=== PATIENT | female | born 1985 | race African-American/Black ===

== ENCOUNTER 2017-04-21 09:05 | Inpatient (IN) ==
[2017-04-22] MEDS ORDERED: TYLENOL PO PRN (00:21)
[2017-04-22] MEDS ORDERED: PEPCID IV PRN (00:21)
[2017-04-22] MEDS ORDERED: KEFZOL 1 GM/D5W 1 GM/50 ML IVPB IV PRN (00:21)
[2017-04-22] MEDS ORDERED: STADOL IV PRN ×2 (00:21)
[2017-04-22] MEDS ORDERED: PEPCID PO PRN (00:21)
[2017-04-22] MEDS ORDERED: BRETHINE SUBQ PRN (00:21)
[2017-04-22] MEDS ORDERED: AMBIEN PO PRN ×2 (00:21→13:28)
[2017-04-22] MEDS ORDERED: ZOFRAN IV PRN (00:21)
[2017-04-22] MEDS ORDERED: CYTOTEC PO ONE (00:21)
[2017-04-22] MEDS ORDERED: AMPICILLIN 2 GM/NS 2 GM/100 ML IVPB IV ONE (00:21)
[2017-04-22] MEDS ORDERED: PITOCIN 30 UNITS/LR 30 UNITS/500 ML IV.SOLN IV SCH (00:21)
[2017-04-22] MEDS: LR 1,000 ML IV ONE ×2 (01:21→09:16)
[2017-04-22 02:42] LABS: MANUAL DIFF NEEDED? NO
[2017-04-22 02:42] LABS: URINE SOURCE VOIDED
[2017-04-22 02:47] LABS: BILIRUBIN URINE NEGATIVE (NEGATIVE); BLOOD URINE 1+ (NEGATIVE); CLARITY CLEAR (CLEAR); COLOR YELLOW; GLUCOSE URINE NEGATIVE (NEGATIVE); LEUKOCYTES URINE TRACE (NEGATIVE); NITRITE URINE NEGATIVE (NEGATIVE); PH URINE 6.5; PROTEIN URINE 1+(30 mg/dL) mg/dL (NEGATIVE); UROBILINOGEN URINE 1+(1 mg/dL)
[2017-04-22 02:51] LABS: UR AMPHETAMINES QUAL NONE DETECTED (NONE DETECT); UR BARBITUATES QUAL NONE DETECTED (NONE DETECT); UR BENZODIAZEPIN QUAL NONE DETECTED (NONE DETECT); UR CANNABINOIDS QUAL NONE DETECTED (NONE DETECT); UR COCAINE QUAL NONE DETECTED (NONE DETECT); UR MDMA QUAL NONE DETECTED (NONE DETECT); UR METHADONE QUAL NONE DETECTED (NONE DETECT); UR METHAMPHETAMINE QUAL NONE DETECTED (NONE DETECT); UR OPIATES QUAL NONE DETECTED (NONE DETECT); UR OXYCODONE QUAL NONE DETECTED (NONE DETECT); UR PCP QUAL NONE DETECTED (NONE DETECT); UR TCA QUAL NONE DETECTED (NONE DETECT)
[2017-04-22 02:52] LABS: BASO% 0.2 % (0.0-0.8); EOS# 0.03 X1000 (0.0-0.7); EOS% 0.5 % (0.0-10.0); HEMATOCRIT 32.9 % (37.0-47.0); HEMOGLOBIN 11.2 g/dL (12.0-16.0); IMM GRAN# 0.01 X1000 (0.0-0.04); IMM GRAN% 0.2 % (0.0-0.5); LYMPH# 1.32 X1000 (1.2-3.4); LYMPH% 20.7 % (20.5-51.1); MCH 30.9 PG (27-31); MCV 90.6 FL (81-99); MONO# 0.65 X1000 (0.11-0.59); MONO% 10.2 % (1.7-9.3); MPV 13.4 FL (7.4-10.4); NEUT% 68.2 % (42.2-75.2); PLT 151 X1000 (130-400); RBC 3.63 XMIL (4.2-5.4)
[2017-04-22] MEDS ORDERED: CYTOTEC PO SCH (04:21)
[2017-04-22] MEDS: AMPICILLIN 1 GM/NS 1 GM/50 ML IVPB IV SCH ×2 (05:11→09:12)
[2017-04-22] MEDS: STADOL IV PRN ×4 (05:12→11:45)
[2017-04-22] MEDS ORDERED: FENTANYL-BUPIV-NS 2 MCG-0.1% 200 ML EPIDURAL SCH (08:00)
[2017-04-22] MEDS ORDERED: MINERAL OIL TOP ONE (08:17)
[2017-04-22] MEDS ORDERED: XYLOCAINE-MPF 1% INJ ONE (08:18)
[2017-04-22] MEDS ORDERED: BENADRYL IV PRN (13:28)
[2017-04-22] MEDS ORDERED: PERI MEDS (DERMOPLAST/NUPERCAINAL/TUCKS) MISC PRN (13:28)
[2017-04-22] MEDS ORDERED: PERCOCET-5 PO PRN (13:28)
[2017-04-22] MEDS ORDERED: HYDROXYZINE PO PRN (13:28)
[2017-04-22] MEDS ORDERED: XYLOCAINE-MPF 1% INJ PRN (13:28)
[2017-04-22] MEDS ORDERED: HYDROXYZINE IM PRN (13:28)
[2017-04-22] MEDS ORDERED: CYTOTEC PO PRN (13:28)
[2017-04-22] MEDS ORDERED: BENADRYL PO PRN (13:28)
[2017-04-22] MEDS ORDERED: PITOCIN 30 UNITS/LR 30 UNITS/500 ML IV.SOLN IV ONE (13:28)
[2017-04-22] MEDS ORDERED: MINERAL OIL PO PRN (13:28)
[2017-04-22] MEDS ORDERED: PITOCIN IM PRN (13:28)
[2017-04-22] MEDS ORDERED: PITOCIN 20 UNITS/LR 20 UNITS/1,000 ML IV.SOLN IV SCH (13:28)
[2017-04-22] MEDS ORDERED: M-M-R II VACCINE SUBQ ONE (13:28)
[2017-04-22] MEDS ORDERED: BOOSTRIX VACCINE IM ONE (13:28)
[2017-04-22] MEDS: MOTRIN PO PRN (15:14)
--- NOTE | 2017-04-22 15:17 | OPERATIVE NOTE ---
PROCEDURE DATE: 04/22/2017 DELIVERY PHYSICIAN: Dr. Cullen. TYPE DELIVERY: Spontaneous controlled vaginal delivery. ANESTHESIA: IV sedation. FINDINGS: At 1301 a 7 pound 11 ounce female was delivered in occiput posterior presentation. Apgars were 9 at 1 minute and 10 at 5 minutes. SUMMARY: Bronwyn Sears is a 32-year-old 3, para 2-0-0-2 who is at term gestation. Her blood type is B positive. Rubella immune. Hepatitis B surface antigen, HIV negative. Group B strep was positive. The patient was brought in early this morning, began group B strep prophylaxis. She also received a single dose of Cytotec this morning. Membranes ruptured revealing clear fluid. She progressed to labor without signs of stress or dystocia. She became complete and began pushing. She rapidly crowned. At that point a spontaneous controlled vaginal delivery occurred. Once the infant's head was delivered the oropharynx was bulb suctioned. The shoulders and body delivered without complications. Cord was clamped and cut. The was handed to the nurses for further care and evaluation. Cord blood was obtained. Placenta was spontaneously delivered and was intact. There were no vaginal lacerations and blood loss estimated 150 mL. Patient remained in the LDR recovering without difficulty. cc: Adalberto Cullen MD
[2017-04-22] MEDS: PERICOLACE PO SCH (20:37)
[2017-04-22] MEDS: NORCO-5 PO PRN (20:44)
[2017-04-23] MEDS: NORCO-5 PO PRN ×2 (00:53→13:44)
[2017-04-23] MEDS: MOTRIN PO PRN ×3 (00:53→17:09)
[2017-04-23] MEDS: PRECARE PO SCH (08:42)
[2017-04-23] MEDS: PERICOLACE PO SCH (21:18)
[2017-04-23] MEDS: PERCOCET-10 PO PRN (21:21)
[2017-04-24] MEDS: MOTRIN PO PRN (04:50)
[2017-04-24] MEDS: NORCO-5 PO PRN (08:47)
[2017-04-24] MEDS: PRECARE PO SCH (08:48)
[2017-04-24] MEDS: PERCOCET-10 PO PRN (11:41)
[2017-04-24 12:03] VITALS: BP 134/72
--- NOTE | 2017-04-25 12:52 | DISCHARGE SUMMARY ---
ADMISSION DATE: 04/22/2017 DISCHARGE DATE: 04/24/2017 ADMIT DIAGNOSES: Intrauterine at term for labor induction. DISCHARGE DIAGNOSIS: Term , delivered. CONDITION: Stable. DIET: As tolerated. DISCHARGE MEDICATIONS: Continue vitamins with iron, [id number] stool softeners, and nonsteroidals, oxycodone 5 mg, #14 for any pain. FOLLOW-UP: She is to follow up in [address] Cullen. HISTORY AND HOSPITAL COURSE: Please refer to Ms. Sears' records and delivery note. She was admitted and underwent successful labor induction. She has done well afterwards. She is ambulating, voiding, tolerating p.o., desiring discharge. PHYSICAL EXAMINATION: Vital Signs: Stable. She is afebrile. General: She is alert and cooperative, in no acute distress. Neck: Supple. Lungs: Clear. Heart: Regular sinus rhythm. Abdomen: Distended. Uterus is firm and nontender. LABS: Hemoglobin 11.2. We will discharge with above instructions. cc: MD Adalberto Jewell MD
== END 2017-04-24 16:30 | disposition home or self-care (01) ==
LOC: EDSTATUS 09:05 → P.LD 04-22 00:19 → P.WC 04-22 16:26
PROVIDERS: ADMIT Obstetrics & Gynecology; ATTEND Obstetrics & Gynecology